=== PATIENT | female | born 1960 | race Caucasian/White ===

== ENCOUNTER → 2016-08-14 | Outpatient (CLI) | payer BC ==
[~2016-08-14] MED LIST: DEXL60CA2 PO; LOSA25TA47 PO
[2016-08-14 08:50] LABS: BASOPHILS % 0.3 % (0.0-2.0); EOSINOPHILS # 0.1 10^3/ul (0.0-0.5); EOSINOPHILS % 0.9 % (0.0-7.0); HEMATOCRIT 42.1 % (37.0-47.0); HEMOGLOBIN 14.2 g/dl (12.0-16.0); LYMPHOCYTES # 2.3 10^3/ul (0.8-2.9); LYMPHOCYTES % 35.4 % (15.0-51.0); MEAN CORPUSCULAR HEMOGLOBIN 29.3 pg (29.0-33.0); MEAN CORPUSCULAR HGB CONC 33.7 g/dl (32.0-37.0); MEAN CORPUSCULAR VOLUME 86.8 fl (82.0-101.0); MEAN PLATELET VOLUME 9.1 fl (7.4-10.4); MONOCYTE # 0.5 10^3/ul (0.3-0.9); MONOCYTES % 7.9 % (0.0-11.0); NEUTROPHIL # 3.7 10^3/ul (1.6-7.5); NEUTROPHILS % 55.5 % (39.0-77.0); PLATELET COUNT 207 10^3/UL (140-440); RED BLOOD COUNT 4.86 10^6/ul (4.20-5.40); RED CELL DISTRIBUTION WIDTH 13.6 % (11.5-14.5); UNCORRECTED WBC 6.6 10^3/ul (4.8-10.8); WHITE BLOOD COUNT 6.6 10^3/ul (4.8-10.8)
[2016-08-14 08:55] LABS: CONDITION 1
[2016-08-14 09:00] LABS: ALBUMIN 4.4 g/dl (3.3-4.9)
[2016-08-14 09:01] LABS: POTASSIUM 4.3 mmol/L (3.5-5.1)
[2016-08-14 09:03] LABS: ALBUMIN/GLOBULIN RATIO 1.46; BILIRUBIN,INDIRECT 0.3 mg/dl (0-1.1); BILIRUBIN,TOTAL 0.3 mg/dl (0.2-1.3); CREATININE 0.88 mg/dl (0.44-1.00); TOTAL PROTEIN 7.4 g/dl (6.1-8.1)
[2016-08-14 09:04] LABS: CALCIUM 9.4 mg/dl (8.4-10.2); CHOL/HDL RATIO 4.1 RATIO
[2016-08-14 09:34] LABS: THYROID STIMULATING HORMONE 3.99 MIU/L (0.465-4.680)
== END | disposition home or self-care (01) ==
LOC: LAB 08:23 → EEVIPCON 08:23
PROVIDERS: ATTEND Internal Medicine
DX: D64.9 Anemia, unspecified (principal); E78.5 Hyperlipidemia, unspecified; E55.9 Vitamin D deficiency, unspecified
CPT/HCPCS: 80053; 80061; 82652; 84436; 84443; 85025

== ENCOUNTER 2016-10-17 08:37 | Emergency (ER) | payer BC ==
[~2016-10-17] VITALS: Wt 59.0 kg
[~2016-10-17 08:37] MED LIST changes: +LOSA25TA2 PO; -LOSA25TA47 PO
[2016-10-17] MEDS ORDERED: KETOROLAC 30 MG INJ IM STA (09:23)
--- NOTE | 2016-10-17 10:02 | ERD ---
ER Documentation Chief Complaint Date/Time DATE: 10/17/16 TIME: 09:56 Chief Complaint chest congestion and cough and sore throat for 2 days. no fevers HPI This is a 56-year-old female presenting to the emergency department for cough, chest congestion and sore throat 2 days. Patient states she was working in her garden and she believes some of the debris and pollen dispersed into her throat and lungs. Patient states soon after working in her garden she developed cough, chest congestion and sore throat. No difficulty swallowing. Patient is talking in complete sentences. Muffled voice. No fevers or chills. Patient states she has bloody tinged sputum. No nausea, vomiting or diarrhea. Denies abdominal pain. Patient states she has generalized body aches. No shortness of breath, difficulty breathing or chest pain. No heart palpitations or weakness. Patient has been taking Motrin at home with last dose about 10 hours ago. ROS All systems reviewed and are negative except as per history of present illness. Medications Home Meds Active Scripts Ibuprofen* (Motrin*) 600 Mg Tab, 600 MG PO Q6, #15 TAB Prov:JO MOSS NP 10/17/16 Diphenhydramine Hcl* (Benadryl*) 25 Mg Cap, 25 MG PO Q6, #10 CAP do not take cough syrup (promethazine with codeine) together with this medication Prov:JO MOSS NP 10/17/16 Promethazine HCl/Codeine (Prometh-Codein 6.25-10 mg/5 ml) 5 Ml Syrup, 5 ML PO Q6 for COUGH, #240 ML do not take diphenhydramine together with this medicaiton Prov:JO MOSS NP 10/17/16 Reported Medications Dexlansoprazole (Dexilant) 60 Mg Daryl., 60 MG PO DAILY 07/04/13 Losartan Potassium* (Cozaar*) 25 Mg Tablet, 25 MG PO DAILY 07/04/13 Allergies Allergies: Coded Allergies: Penicillins (Verified Allergy, Mild, RINGING IN EARS, 07/04/13) hydrocodone (Verified Allergy, Mild, VOMITING, 07/04/13) azithromycin (Verified Allergy, Unknown, 11/26/15) PMhx/Soc History of Surgery: Yes (tubal ligation) Anesthesia Reaction: No Hx Neurological Disorder: No Hx Respiratory Disorders: No Hx Cardiac Disorders: Yes (HYPERTENSION) Hx Psychiatric Problems: No Hx Miscellaneous Medical Probl: No Hx Alcohol Use: No Hx Substance Use: No Hx Tobacco Use: No Smoking Status: Never smoker Physical Exam Vitals Vital Signs Date Time Temp Pulse Resp B/P Pulse Ox O2 Delivery O2 Flow Rate FiO2 10/17/16 08:42 98.8 90 21 137/84 100 Physical Exam Const: Alert, nontoxic appearing Head: Atraumatic Eyes: Normal Conjunctiva ENT: Normal External Ears, Nose and Mouth. No erythema or exudate posterior pharynx. Non-kissing tonsils. Uvula is midline. TMs normal bilaterally. Neck: Full range of motion..~ No meningismus. No lymphadenopathy. Resp: Clear to auscultation bilaterally. No wheezing, rhonchi or crackles. Cardio: Regular rate and rhythm, no murmurs Abd: Soft, non tender, non distended. Normal bowel sounds Skin: No petechiae or rashes Back: No midline or flank tenderness Ext: No cyanosis, or edema Neur: Awake and alert Psych: Normal Mood and Affect Results 24 hrs Current Medications Medications (Trade) Dose Ordered Sig/Pranav Route PRN Reason Start Time Stop Time Status Last Admin Dose Admin Ketorolac Tromethamine (Toradol) 30 mg ONCE STAT IM 10/17/16 09:23 10/17/16 09:25 DC 10/17/16 09:39 Procedures/MDM ED COURSE: The patient was stable throughout ED course. I kept the patient and/or family informed of laboratory and diagnostic imaging results throughout the ED course. Microbiology Strep swab negative Influenza swab negative Imaging Chest xray Patient: ABDELRAHMAN FORD : 1960 Age: 56 Sex: F MR #: [id number] DOS: 10/17/16 0923 Ordering MD: JO MOSS NP Location: [facility] Room/Bed: PROCEDURE: XR Chest. CLINICAL INDICATION: Cough and congestion. TECHNIQUE: Single frontal view. COMPARISON: 08/03/2016. FINDINGS: The lungs are clear. The heart size is normal. There is no pleural effusion. There is no pneumothorax. IMPRESSION: 1. Normal chest radiograph. MDM: This is a 56-year-old female presenting to the emergency department for cough, chest congestion and sore throat 2 days. Patient believes she may have breathed in pollen or allergens while gardening 2 days ago. Patient states soon after working in her garden she developed cough with chest congestion and sore throat. Patient has been taking Motrin with last dose about 10 hours ago. No fevers or chills. Vital signs remained stable. No tachycardia, hypertension or hypotension. No chest pain or back pain. No vomiting or diarrhea. Denies abdominal pain. No rash. Low suspicion for pneumonia, pleural effusion, pneumothorax, influenza or strep pharyngitis. Patient likely has URI vs bronchitis vs laryngitis. Patient is appropriate for outpatient management will be given prescription for Motrin, Benadryl and promethazine with codeine syrup. Instructed patient to follow-up with primary care provider in the next 24-48 hours for reassessment and additional management. Patient states she is sensitive to hydrocodone however tolerates promethazine with codeine syrup. Discussed at length, test results with patient. Discussed not taking promethazine with codeine syrup at the same time as Benadryl. Also discussed no driving while on medications. Patient states she understands. Return to ED for any high fever, chest pain, difficulty breathing, shortness breath, wheezing, vomiting, diarrhea, abdominal pain or any new or worsening symptoms. Patient verbalizes understanding. All questions answered at discharge. Departure Diagnosis: Primary Impression: URI (upper respiratory infection) URI type: unspecified viral URI Qualified Code: J06.9 - Viral upper respiratory tract infection Condition: Stable JO MOSS NP Oct 17, 2016 10:02
--- NOTE | 2016-10-17 10:13 | RADRPT ---
PROCEDURE: XR Chest. CLINICAL INDICATION: Cough and congestion. TECHNIQUE: Single frontal view. COMPARISON: 08/03/2016. FINDINGS: The lungs are clear. The heart size is normal. There is no pleural effusion. There is no pneumothorax. IMPRESSION: 1. Normal chest radiograph. RPTAT: QQ .Ricardo Pelayo MD, MD Date Time Electronically viewed and signed by .Ricardo Pelayo MD, MD on 10/17/2016 10:13 .R/
[2016-10-17] MEDS ORDERED: BEN25 PO (10:38)
[2016-10-17] MEDS ORDERED: PROM5SYR2 PO (10:38)
[2016-10-17] MEDS ORDERED: IBUP-1542 PO (10:42)
== END 2016-10-17 10:53 | disposition home or self-care (01) ==
LOC: FTE 08:37
DX: J06.9 Acute upper respiratory infection, unspecified (principal); I10 Essential (primary) hypertension
CPT/HCPCS: 71010; 87400; 87880; 96372; 99284; J1885

== ENCOUNTER → 2016-10-18 | Outpatient (CLI) | payer BC ==
[~2016-10-18] MED LIST changes: +BEN25 PO; +IBUP-1542 PO; +PROM5SYR2 PO
--- NOTE | 2016-10-18 14:08 | RADRPT ---
PROCEDURE: XR Chest. CLINICAL INDICATION: Cough. TECHNIQUE: Two views. Frontal and lateral. COMPARISON: 10/17/2016. FINDINGS: There is mild linear atelectasis in the right mid lung zone. The lungs are otherwise clear. The heart size is normal. There is no pleural effusion. There is no pneumothorax. IMPRESSION: 1. Mild linear atelectasis in the right mid lung zone. 2. Otherwise normal chest x-ray. RPTAT: QQ .Ricardo Pelayo MD, MD Date Time Electronically viewed and signed by .Ricardo Pelayo MD, MD on 10/18/2016 14:08 .R/
[2016-10-18 14:13] LABS: ADD SCAN DIFF NO
[2016-10-18 14:19] LABS: BASOPHILS % 0.4 % (0.0-2.0); EOSINOPHILS % 0.1 % (0.0-7.0); HEMATOCRIT 43.1 % (37.0-47.0); HEMOGLOBIN 13.9 g/dl (12.0-16.0); LYMPHOCYTES # 1.3 10^3/ul (0.8-2.9); LYMPHOCYTES % 17.7 % (15.0-51.0); MEAN CORPUSCULAR HGB CONC 32.3 g/dl (32.0-37.0); MEAN CORPUSCULAR VOLUME 89.8 fl (82.0-101.0); MEAN PLATELET VOLUME 10.3 fl (7.4-10.4); MONOCYTE # 0.9 10^3/ul (0.3-0.9); MONOCYTES % 12.2 % (0.0-11.0); NEUTROPHIL # 4.9 10^3/ul (1.6-7.5); NEUTROPHILS % 69.3 % (39.0-77.0); PLATELET COUNT 185 10^3/UL (140-415); WHITE BLOOD COUNT 7.1 10^3/ul (4.8-10.8)
[2016-10-18 14:30] LABS: POTASSIUM 4.2 mmol/L (3.5-5.1)
[2016-10-18 14:33] LABS: CREATININE 0.84 mg/dl (0.44-1.00)
[2016-10-18 14:34] LABS: CALCIUM 9.2 mg/dl (8.4-10.2)
== END | disposition home or self-care (01) ==
LOC: LAB 13:29
PROVIDERS: ATTEND Internal Medicine
DX: D64.9 Anemia, unspecified (principal); J20.9 Acute bronchitis, unspecified; J18.9 Pneumonia, unspecified organism
CPT/HCPCS: 71020; 80048; 85025

== ENCOUNTER → 2017-03-23 | Outpatient (CLI) | payer BC ==
[2017-03-23 13:01] LABS: BASOPHILS % 0.5 % (0.0-2.0); EOSINOPHILS # 0.1 10^3/ul (0.0-0.5); HEMOGLOBIN 13.9 g/dl (12.0-16.0); LYMPHOCYTES % 34.4 % (15.0-51.0); MEAN CORPUSCULAR HEMOGLOBIN 29.3 pg (29.0-33.0); MEAN CORPUSCULAR HGB CONC 33.1 g/dl (32.0-37.0); MEAN CORPUSCULAR VOLUME 88.6 fl (82.0-101.0); MEAN PLATELET VOLUME 10.5 fl (7.4-10.4); MONOCYTE # 0.9 10^3/ul (0.3-0.9); MONOCYTES % 10.5 % (0.0-11.0); NEUTROPHILS % 53.4 % (39.0-77.0); PLATELET COUNT 212 10^3/UL (140-415); RED BLOOD COUNT 4.74 10^6/ul (4.20-5.40); RED CELL DISTRIBUTION WIDTH 13.4 % (11.5-14.5); WHITE BLOOD COUNT 8.6 10^3/ul (4.8-10.8)
[2017-03-23 13:22] LABS: ALBUMIN 4.5 g/dl (3.3-4.9); ALBUMIN/GLOBULIN RATIO 1.36; BILIRUBIN,INDIRECT 0.1 mg/dl (0-1.1); BILIRUBIN,TOTAL 0.1 mg/dl (0.2-1.3); CALCIUM 9.5 mg/dl (8.4-10.2); POTASSIUM 4.6 mmol/L (3.5-5.1); TOTAL PROTEIN 7.8 g/dl (6.1-8.1); URIC ACID 4.5 mg/dl (3.1-7.9)
--- NOTE | 2017-03-24 08:48 | RADRPT ---
PROCEDURE: XR Foot. CLINICAL INDICATION: POSSIBLE FRACTURE TECHNIQUE: AP, lateral and oblique views of the right foot was obtained. The images were reviewed on a PACS workstation. COMPARISON: None. FINDINGS: The bones of the foot appear intact, with no evidence of acute fracture, dislocation, or subluxation . The joint spaces are preserved. Bone mineralization is normal. No significant soft tissue swelling is seen. IMPRESSION: Unremarkable right foot radiographs. RPTAT: EE Physician Brittany Date Time Electronically viewed and signed by Physician Brittany on 03/24/2017 08:47 RA/
== END | disposition home or self-care (01) ==
LOC: LAB 12:10
PROVIDERS: ATTEND Internal Medicine
DX: M25.571 Pain in right ankle and joints of right foot (principal); M10.9 Gout, unspecified
CPT/HCPCS: 73630; 80053; 84560; 85025; 85651

== ENCOUNTER → 2017-08-26 | Outpatient (CLI) | END | disposition home or self-care (01) ==

== ENCOUNTER → 2017-11-22 | Outpatient (CLI) | END | disposition home or self-care (01) ==

== ENCOUNTER → 2017-12-22 | Outpatient (CLI) | END | disposition home or self-care (01) ==

== ENCOUNTER → 2018-07-29 | Outpatient (CLI) | END | disposition home or self-care (01) ==

== ENCOUNTER → 2018-11-07 | Outpatient (CLI) | payer BC | END | disposition home or self-care (01) | LOC: U/S 07:55 | PROVIDERS: ATTEND Internal Medicine Gastroenterology | DX: R10.9 Unspecified abdominal pain (principal) | CPT/HCPCS: 76700 ==

== ENCOUNTER 2018-11-10 05:39 | Day surgery (SDC) | payer BC ==
[~2018-11-10] VITALS: Ht 157.5 cm; Wt 60.9 kg
[2018-11-10 06:48] VITALS: BP 135/79; PULSE 74; RESP 16; Ht 157.5 cm; Wt 60.9 kg
[2018-11-10] MEDS ORDERED: FENTAnyl 50 MCG/ML VIAL ONE (08:03)
[2018-11-10] MEDS ORDERED: MIDAZOLAM 1 MG/ML 2 ML INJ ONE ×2 (08:03)
[2018-11-10 08:28] VITALS: BP 118/64; PULSE 80; RESP 14
--- NOTE | 2018-11-10 11:52 | CONS ---
DATE OF ADMISSION: 11/10/2018 DATE OF CONSULTATION: PATIENT NAME: HERMINIA LEROY TYPE OF CONSULTATION: Preoperative gastroenterology. Dear Dr. Maddox: I thank you very much for this kind referral. HISTORY OF PRESENT ILLNESS: Ms. Herminia Leroy is a 58-year-old female patient who has been referred to johanna kovacs for further evaluation of upper abdominal pain associated with bloating. The patient also complain s of heartburn. She has been taking Dexilant without much relief. No past history of peptic ulcer d isease. Not on nonsteroidal anti-inflammatory agents. No history of gallstones or liver disease. D enies any change in the bowel habit or rectal bleeding. The patient had screening colonoscopy 3 year s ago and she had a small colon polyp removed. No colon malignancy was identified. PAST MEDICAL HISTORY: She is hypertensive. Not a diabetic. No heart disease, lung problem or kidne y disease. She is status post tubal ligation. SOCIAL HISTORY: Nonsmoker. No alcohol abuse. FAMILY HISTORY: No family history of gastrointestinal tract neoplasm. ALLERGIES: 1. PENICILLIN. 2. VICODIN. MEDICATIONS: 1. Losartan. 2. Dexilant. PHYSICAL EXAMINATION: VITAL SIGNS: She is 5 feet, 2 inches tall and weighs 134 pounds. HEART: Normal heart sounds. LUNGS: Clear. ABDOMEN: Soft. No masses. Normal bowel sounds. NEUROLOGIC: Normal. IMPRESSION: 1. Upper abdominal pain associated with bloating. 2. Chronic heartburn, not responding to therapy with Dexilant. 3. The patient had screening colonoscopy 3 years ago and no malignancy was identified. 4. Hypertension. 5. Status post tubal ligation. 6. ALLERGY TO PENICILLIN AND VICODIN. PLAN: 1. Continue Dexilant. 2. Abdominal ultrasound and upper endoscopy for further evaluation. The procedure and possible complications were well explained to the patient. She understands and con sents to the procedure. I thank you once again. With warmest personal regards, Dictated By: PATRICIA KAPOOR/YOBANI Conf#: [id number] DID#: [id number]
== END 2018-11-10 09:38 | disposition home or self-care (01) ==
LOC: GIL 05:39
PROVIDERS: ATTEND Internal Medicine Gastroenterology
DX: K21.9 Gastro-esophageal reflux disease without esophagitis (principal); K29.60 Other gastritis without bleeding; I10 Essential (primary) hypertension
CPT/HCPCS: 43239; 88305; 88312; J2250; J3010

== ENCOUNTER → 2018-12-01 | Outpatient (CLI) | payer BC ==
[~2018-12-01] MED LIST changes: -BEN25 PO; -IBUP-1542 PO; -PROM5SYR2 PO
== END | disposition home or self-care (01) ==
LOC: LAB 10:12
PROVIDERS: ATTEND Internal Medicine
DX: D64.9 Anemia, unspecified (principal); E55.9 Vitamin D deficiency, unspecified; R73.03 Prediabetes; E78.5 Hyperlipidemia, unspecified
CPT/HCPCS: 80053; 80061; 82306; 82607; 84436; 84443; 85025; 85651

== ENCOUNTER → 2019-01-11 | Outpatient (CLI) | payer BC | END | disposition home or self-care (01) | LOC: C/S 16:30 | PROVIDERS: ATTEND Internal Medicine | DX: R10.9 Unspecified abdominal pain (principal); K57.30 Diverticulosis of large intestine without perforation or abscess without bleeding; K76.0 Fatty (change of) liver, not elsewhere classified; R16.0 Hepatomegaly, not elsewhere classified | CPT/HCPCS: 74177 ==